=== PATIENT | female | born 1955 | race Caucasian/White ===

== ENCOUNTER 2019-12-13 16:54 | Emergency (ER) | payer MEDICAID, MEDICARE ==
[~2019-12-13] VITALS: Ht 170.2 cm; Wt 55.0 kg
[2019-12-13 16:56] VITALS: BP 172/103
--- NOTE | 2019-12-13 17:14 | NUR ---
SPOKE WITH PT BF, ABBE, TO UPDATE HIM ON PT. ABBE TO COME VISIT/SIT WITH PT.
[2019-12-13] MEDS ORDERED: LORazepam 1MG TABLET ONE (17:25)
[2019-12-13] MEDS ORDERED: LORazepam 1MG TABLET PO ONE (17:30)
--- NOTE | 2019-12-13 17:32 | NUR ---
PT FOUND SITTING EDGE OF BED, STATING "THEY CAN'T FIND ANYTHING MORE WRONG WITH ME. I'M ABOUT TO GET MY OWN BIKE AGAIN". SHE WAS REFUSING LAB/XRAY/UA. AFTER TALKING WITH PT, PT AGREED TO [facility] AND WAITING FOR ABBE TO PICK HER UP. PROVIDER NOTIFIED. [facility]IV[facility] ADMIN. MD AND PA AT BEDSIDE TO TALK TO PT. PT TO BE GIVEN TIME TO REST AND RELAX, THEN WILL RE-ASSESS IF PT WILL AGREE TO WORKUP. LIGHTS DIMMED, HEAD OF BED LOWERED. PT CONNECTED TO PULSEOX FOR MONITORING.
--- NOTE | 2019-12-13 18:04 | NUR ---
PT UNCONNECTED HERSELF FROM MONITORING AND WALKED OUT OF ROOM, STATING SHE IS FEELING BETTER AND LEAVING. THIS RN ATTEMPTED TO GET HER TO STAY, WITHOUT SUCCESS. PT SIGNED AMA PAPER AND AMBULATED TO DC WITH STEADY GAIT. PROVIDER NOTIFIED.
== END 2019-12-13 18:07 | disposition left against medical advice (07) ==
LOC: ED 18:00
DX: R07.89 Other chest pain (principal); R00.2 Palpitations; M79.602 Pain in left arm; R06.02 Shortness of breath; I11.9 Hypertensive heart disease without heart failure
CPT/HCPCS: 93005; 99283